=== PATIENT | female | born 1930 | race Caucasian/White ===

== ENCOUNTER 2016-06-03 11:55 | Emergency (ER) | payer OTHER ==
--- NOTE | 2016-06-03 12:24 | ED EKG INTERP ---
EKG Interpretation - EKG Time of EKG reading by physician:: 12:18 EKG Read and Signed by:: Fabien Kaplan EKG Interpretation (*Must complete 3 of following elements*): Abnormal Rate: 75 Rhythm: atrial fibrillation QRS: RBB
--- NOTE | 2016-06-03 13:27 | PROVIDER DOCUMENTATION ---
HPI-General Adult - General Chief Complaint: Weakness Stated Complaint: LOW OXYGEN Time Seen by Provider: 06/03/16 12:52 Source: patient Allergies/Adverse Reactions: Patient Allergies Allergy/AdvReac Type Severity Reaction Status Date / Time ampicillin Allergy Unknown Verified 07/14/14 00:23 ciprofloxacin [From Cipro] Allergy Unknown Verified 07/14/14 00:23 ciprofloxacin HCl * Allergy Unknown Verified 07/14/14 00:23 [From Cipro] diazepam Allergy Unknown Verified 07/14/14 00:23 divalproex sodium Allergy Unknown Verified 07/14/14 00:23 lovastatin [From Mevacor] Allergy Unknown Verified 07/14/14 00:23 metoclopramide HCl * Allergy Unknown Verified 07/14/14 00:23 [From Reglan] milnacipran HCl * Allergy Unknown Verified 07/14/14 00:23 [From Savella] peanut Allergy Unknown Verified 07/14/14 00:23 Home Medications: Aspirin [Adult Low Dose Aspirin EC] 81 mg PO DAILY 05/10/16 Esomeprazole [Nexium] 40 mg PO DAILY 05/10/16 Furosemide 80 mg PO DAILY PRN PRN 05/10/16 Flaxseed Oil [Flax Seed Oil] 2,000 mg PO DAILY 06/03/16 Loratadine 10 mg PO DAILY 06/03/16 - History of Present Illness -Gen Adult Nature of Presenting Problems: 85 yo F presents to ED from sleep physician's office with cc of low oxygen saturation. Pt does not report any symptoms relating to low O2 saturation. Upon arrival to ED, pt's O2 saturation was 97% on room air. Pt was in no apparent distress. Location of Pain/Injury: reports: none Onset/Duration: reports: just prior to arrival Timing: reports: gone now Context/Activities at Onset: reports: none Associated Symptoms: reports: denies symptoms Recently seen or treated by another doctor?: Yes (Sent over by sleep physician) Review of Systems - Adult - REVIEW OF SYSTEMS - ADULT Constitutional: reports: no symptoms reported. denies: chills, fever Eyes: reports: no symptoms reported. denies: dry eyes, blurred vision Ears, Nose, Mouth & Throat: reports: no symptoms reported. denies: ear pain, nose pain Cardiovascular: reports: no symptoms reported. denies: chest pain, heart murmur Respiratory: reports: other (Low O2 sats at doctor office). denies: shortness of breath Gastrointestinal: reports: no symptoms reported. denies: abdominal pain, hematemesis Genitourinary: reports: no symptoms reported. denies: dysuria, flank pain Musculoskeletal: reports: no symptoms reported. denies: back pain, muscle weakness Integumentary: reports: no symptoms reported. denies: hives, itching Neurological: reports: no symptoms reported. denies: dizziness/vertigo, loss of balance Psychiatric: reports: no symptoms reported. denies: anxiety, depression Endocrine: reports: no symptoms reported. denies: cold intolerance, heat intolerance Hematologic/Lymphatic: reports: no symptoms reported. denies: blood clots, easy bruising Allergic/Immunologic: reports: no symptoms reported. denies: allergic rhinitis , eczema All Other Systems: Reviewed and Negative Past History - Adult - PAST MEDICAL HISTORY-ADULT Review of Records: reports: Old Records Reviewed, Nursing Assessment Review, Medications Reviewed Cardiovascular: reports: HTN Respiratory: reports: asthma, COPD Gastrointestinal: reports: GERD Neurological: reports: dementia Endocrine/Immune: reports: Diabetes - PRIOR SURGERIES/PROCEDURES Surgical/Procedure History: reports: appendectomy, cholecystectomy, hysterectomy , joint replacement (right hip ([place])) - IMMUNIZATION STATUS Childhood Immunizations: See Nurse Assessment Flu Vaccine: See Nurse Assessment Physical Exam-General - PHYSICAL EXAM-ADULT Initial Vital Signs Reviewed: Yes - CONSTITUTIONAL General Appearance: appears well, alert, no apparent distress - EYES Eyes: PERRL/EOMI, pink conjunctivae - HEAD, EARS, NOSE, MOUTH & THROAT HENMT: normocephalic/atraumatic, moist mucous membranes - NECK Neck: non-tender, full range of motion, normal inspection - RESPIRATORY Respiratory: chest non-tender, lungs clear, normal breath sounds - CARDIOVASCULAR Cardiovascular: normal peripheral pulses, regular rate, rhythm - GASTROINTESTINAL (ABDOMEN) Abdominal Exam: non tender, soft - LYMPHATIC Lymphatic: no adenopathy - MUSCULOSKELETAL Back Exam: normal inspection, no vertebral tenderness Extremity: non-tender, normal gait - SKIN Integumentary: normal color, normal turgor, warm/dry - NEUROLOGIC Neurologic: grossly normal, no motor/sensory deficits - PSYCHIATRIC Psych/Mental Status: normal mood/affect, normal thought content, normal thought process, oriented x 3 Progress - PLAN OF CARE/RESULTS Progress/Plan/Lab Results: Vital Signs - 24 hr 06/03/16 06/03/16 12:21 15:41 Temperature 98.8 F Pulse Rate 71 76 Respiratory 20 22 Rate Blood Pressure 121/71 103/69 O2 Sat by Pulse 97 91 L Oximetry Orders Category Date Time Status ABG [RESP] Routine Lab 06/03/16 13:25 Completed BNP [PRO B-NATRIURETIC PEPTIDE] Stat Lab 06/03/16 14:02 Completed CBC WITH ELECTRONIC DIFF [HEME] Stat Lab 06/03/16 14:02 Completed CMP [COMPREHENSIVE METABOLIC PANEL] [CHEM] Stat Lab 06/03/16 14:02 Completed Ddimer [D-DIMER] [CHEM] Stat Lab 06/03/16 14:02 Completed UA NIMS W/REFLEX CULT [URINALYSIS] Routine Lab 06/03/16 14:25 Completed Laboratory Tests 06/03/16 06/03/16 06/03/16 13:25 14:02 14:02 WBC 7.66 RBC 4.52 Hgb 15.1 Hct 43.7 MCV 96.7 MCH 33.4 H MCHC 34.6 RDW Std Deviation 12.4 Plt Count 241 MPV 11.4 H Immature Gran % (Auto) 0.4 Neut % (Auto) 59.7 Lymph % (Auto) 27.0 [place] % (Auto) 10.3 H Eos % (Auto) 2.2 Baso % (Auto) 0.4 Immature Gran # (Auto) 0.03 Neut # (Auto) 4.57 Lymph # (Auto) 2.07 [place] # (Auto) 0.79 H Eos # (Auto) 0.17 Baso # (Auto) 0.03 D-Dimer Specimen Type ARTERIAL Sample Site R RADIAL pH 7.34 L pCO2 48 H pO2 74 HCO3 24.4 Base Excess -0.5 Oxyhemoglobin 94.5 L ABG O2 Sat (Calculated) 20.2 ABG O2 Saturation 97.9 ABG Carboxyhemoglobin 2.20 ABG Methemoglobin 1.3 Chad Test YES A-a O2 Difference 16.0 Total Hemoglobin 15.2 Lactate 1.60 Blood Gas Modality ROOM AIR FiO2 % 21.0 Sodium 131 L Potassium 5.3 H Chloride 93 L Carbon Dioxide 25 Anion Gap 13 BUN 31 H Creatinine 1.2 H Estimated GFR/1.73 m2 43 BUN/Creatinine Ratio 26 Glucose 98 Calculated Osmolality 269 Calcium 9.6 Total Bilirubin 0.52 AST 27 ALT 20 Alkaline Phosphatase 106 H [id number] Pept Total Protein 6.6 Albumin 4.0 Globulin 2.6 Albumin/Globulin Ratio 1.5 Urine Source Urine Color Urine Turbidity Urine pH Ur Specific [place] Urine Protein Ur Glucose (Stick) Ur Ketones (Stick) Urine Blood Urine Nitrite Urine Bilirubin Urobilinogen Dipstick Urine Leukocytes Urine WBC (Auto) Urine RBC (Auto) U Epithel Cells (Auto) Urine Bacteria (Auto) 06/03/16 06/03/16 06/03/16 14:02 14:02 14:25 WBC RBC Hgb Hct MCV MCH MCHC RDW Std Deviation Plt Count MPV Immature Gran % (Auto) Neut % (Auto) Lymph % (Auto) [place] % (Auto) Eos % (Auto) Baso % (Auto) Immature Gran # (Auto) Neut # (Auto) Lymph # (Auto) [place] # (Auto) Eos # (Auto) Baso # (Auto) D-Dimer 0.46 Specimen Type Sample Site pH pCO2 pO2 HCO3 Base Excess Oxyhemoglobin ABG O2 Sat (Calculated) ABG O2 Saturation ABG Carboxyhemoglobin ABG Methemoglobin Chad Test A-a O2 Difference Total Hemoglobin Lactate Blood Gas Modality FiO2 % Sodium Potassium Chloride Carbon Dioxide Anion Gap BUN Creatinine Estimated GFR/1.73 m2 BUN/Creatinine Ratio Glucose Calculated Osmolality Calcium Total Bilirubin AST ALT Alkaline Phosphatase [id number]-K-Katgtrytedv Pept 744 H Total Protein Albumin Globulin Albumin/Globulin Ratio Urine Source CLEAN CATCH Urine Color YELLOW Urine Turbidity CLEAR Urine pH 6.0 Ur Specific [place] 1.008 Urine Protein NEGATIVE Ur Glucose (Stick) NEGATIVE Ur Ketones (Stick) NEGATIVE Urine Blood NEGATIVE Urine Nitrite NEGATIVE Urine Bilirubin NEGATIVE Urobilinogen Dipstick NORMAL Urine Leukocytes NEGATIVE Urine WBC (Auto) <10 Urine RBC (Auto) <10 U Epithel Cells (Auto) <10 Urine Bacteria (Auto) NEGATIVE - REASSESSMENT Reassessment #1 Time Reassessed: 15:30 Status: improving Reassessment Comment: Discussed with pt need and methods for weight reduction Departure - Departure Time of Disposition Order: 15:49 DIAGNOSIS: Hypocapnia, Obesity (BMI 30-39.9) Disposition: HOME 01 Certified Medical Emergency: Emergent Condition: Good Additional Instructions: ED Follow Up Instructions: You have been treated by a care provider in the Emergency Department. These instructions are being provided to you so you can have an understanding of how to care for yourself upon discharge. Upon discharge from the Emergency Department, you are responsible for making arrangements for follow-up care by a physician of your choice. Take all prescribed medications as directed. Return to the Emergency Department immediately for any new or worsening symptoms. You may call the Physician Referral phone number at [phone] to obtain a list of Physicians who are taking new patients. Referrals: Patel Oro [Primary Care Provider] - Attestation - Scribe Verification/Attestation Scribe:: Anne-Marie Worthy Acting as Scribe for:: Fabien Kaplan Scribe documention review:: This chart was documented by a scribe and accurately reflects the service the provider performed and the decisions made by the provider. - Physician/ Mid-level Attestation Patient care was provided by Mid-level provider (CLINICAL ADMISSIONS MANAGER/PA):: No
[2016-06-03 13:36] LABS: ALLEN TEST YES; BE -0.5 mmoll (-3.0-3.0); BLOOD TYPE ARTERIAL; DRAW SITE R RADIAL; METHB 1.3 % (0.0-1.5); O2(CT) 20.2 mL/dL (15.0-23.0); PCO2(98.6) 48 mmHg (35-45); PO2(98.6) 74 mmHg (60-100); SAMPLE BLOOD; SAO2 97.9 % (95.0-100.0); THB 15.2 g/dL (11.5-17.4); pH(98.6) 7.34 (7.35-7.45)
[2016-06-03 13:37] LABS: MODALITY ROOM AIR
[2016-06-03 14:26] LABS: URINE CULTURE NEEDED? NO; URINE MICRO REVIEW NEEDED? NO; URINE SOURCE CLEAN CATCH
[2016-06-03 14:31] LABS: MANUAL DIFF NEEDED? NO
[2016-06-03 14:34] LABS: BILIRUBIN URINE NEGATIVE (NEGATIVE); BLOOD URINE NEGATIVE (NEGATIVE); COLOR YELLOW; GLUCOSE URINE NEGATIVE (NEGATIVE); LEUKOCYTES URINE NEGATIVE (NEGATIVE); NITRITE URINE NEGATIVE (NEGATIVE); PROTEIN URINE NEGATIVE (NEGATIVE); SP GRAVITY URINE 1.008; TURBIDITY URINE CLEAR (CLEAR); UROBILINOGEN URINE NORMAL (NORMAL)
[2016-06-03 14:34] LABS: BASO% 0.4 % (0.0-0.8); EOS# 0.17 X1000 (0.0-0.7); EOS% 2.2 % (0.0-10.0); HEMATOCRIT 43.7 % (37.0-47.0); HEMOGLOBIN 15.1 g/dL (12.0-16.0); IMM GRAN# 0.03 X1000 (0.0-0.04); IMM GRAN% 0.4 % (0.0-0.5); LYMPH# 2.07 X1000 (1.2-3.4); MCH 33.4 PG (27-31); MCHC 34.6 g/dL (33-37); MCV 96.7 FL (81-99); MONO# 0.79 X1000 (0.11-0.59); MONO% 10.3 % (1.7-9.3); MPV 11.4 FL (7.4-10.4); NEUT% 59.7 % (42.2-75.2); PLT 241 X1000 (130-400); RBC 4.52 XMIL (4.2-5.4)
[2016-06-03 14:36] LABS: UR EPITHELIAL CELLS <10 /HPF (<10); URINE BACTERIA NEGATIVE /HPF; URINE RBC <10 /HPF (<10); URINE WBC <10 /HPF (<10)
[2016-06-03 15:00] LABS: CALCIUM 9.6 mg/dL (8.8-10.2); POTASSIUM 5.3 mmol/L (3.5-5.1); TOTAL BILIRUBIN 0.52 mg/dL (0.20-1.00); TOTAL PROTEIN 6.6 g/dL (6.3-8.3)
[2016-06-03 15:41] VITALS: BP 103/69
--- NOTE | 2016-06-04 08:24 | EKG Report ---
Test Performed on : 06/03/2016 12:18:45 PM Test Reason : Done in ED/No order in [employer] Blood Pressure : / mmHG Vent. Rate : 075 BPM Atrial Rate : 080 BPM P-R Int : 000 ms QRS Dur : 122 ms QT Int : 426 ms P-R-T Axes : 000 082 -38 degrees QTc Int : 475 ms Atrial fibrillation. Right bundle branch block Abnormal ECG When compared with ECG of 11-MAY-2016 21:53, No significant change was found Unconfirmed Result
== END 2016-06-03 16:10 | disposition home or self-care (01) ==
LOC: ED 11:55
DX: R09.02 Hypoxemia (principal); E66.9 Obesity, unspecified; I10 Essential (primary) hypertension; J44.9 Chronic obstructive pulmonary disease, unspecified; K21.9 Gastro-esophageal reflux disease without esophagitis; E11.9 Type 2 diabetes mellitus without complications; F03.90 Unspecified dementia, unspecified severity, without behavioral disturbance, psychotic disturbance, mood disturbance, and anxiety; R94.31 Abnormal electrocardiogram [ECG] [EKG]; Z79.899 Other long term (current) drug therapy; Z96.641 Presence of right artificial hip joint; Z79.82 Long term (current) use of aspirin; Z79.1 Long term (current) use of non-steroidal anti-inflammatories (NSAID)
CPT/HCPCS: 80053; 81001; 82805; 83880; 85025; 85379; 93005; 99282